=== PATIENT | male | born 1995 | race Caucasian/White ===

== ENCOUNTER 2018-08-31 01:46 | Emergency (ER) | payer OTHER ==
[2018-08-31] MEDS: diphenhydrAMINE 12.5MG/5ML ELIXIR UDC PO (05:31)
[2018-08-31] MEDS: FAMOTIDINE 20 MG TAB PO (05:31)
[2018-08-31] MEDS: predniSONE 20 MG TAB PO (05:31)
== END 2018-08-31 06:10 | disposition home or self-care (01) ==
LOC: M ED 01:46
DX: L23.9 Allergic contact dermatitis, unspecified cause (principal)
CPT/HCPCS: 99283

== ENCOUNTER 2019-12-08 21:10 | Emergency (ER) | payer OTHER ==
[~2019-12-08] VITALS: Ht 180.3 cm; Wt 79.5 kg
[~2019-12-08 21:10] MED LIST: BENA25CA4 PO; RANI1TAB38 PO
[2019-12-08 22:10] LABS: BASO % 0.3 % (0.0-1.0); EOS # 0.1 10^3/uL (0.0-0.5); EOS % 0.9 % (0.0-3.0); HEMATOCRIT 44.8 % (42.0-52.0); HEMOGLOBIN 15.2 g/dl (13.5-17.5); LYMPH # 2.5 10^3/uL (1.5-5.0); LYMPH % 25.5 % (24.0-44.0); MEAN CORPUSCULAR HEMOGLOBIN 30.7 pg (27.0-33.0); MEAN CORPUSCULAR HGB CONC 33.9 g/dl (32.0-36.5); MEAN CORPUSCULAR VOLUME 90.5 fl (80.0-96.0); MONO # 0.9 10^3/uL (0.0-0.8); MONO % 8.9 % (0.0-5.0); NEUTROPHILS # 6.3 10^3/uL (1.5-8.5); PLATELET COUNT, AUTOMATED 209 10^3/uL (150-450); RED BLOOD COUNT 4.95 10^6/uL (4.30-6.10); WHITE BLOOD COUNT 9.9 10^3/uL (4.0-10.0)
[2019-12-08] MEDS ORDERED: ISOVUE-370 76% 100ML VIAL (Q9967) As Ordered ONE (23:01)
[2019-12-08 23:06] LABS: CHLAMYDIA DNA AMPLIFICATION POSITIVE (NEGATIVE); GC DNA AMPLIFICATION NEGATIVE (NEGATIVE)
[2019-12-08] MEDS ORDERED: CIPR-249 PO (23:19)
[2019-12-08] MEDS ORDERED: CIPROFLOXACIN 500 MG TAB PO ONE (23:30)
[2019-12-08] MEDS ORDERED: AZITHROMYCIN 250 MG TAB PO ONE (23:30)
[2019-12-08 23:48] VITALS: BP 120/73
== END 2019-12-08 23:50 | disposition home or self-care (01) ==
LOC: M ED 21:10
DX: A74.9 Chlamydial infection, unspecified (principal); R30.0 Dysuria; Z86.19 Personal history of other infectious and parasitic diseases
CPT/HCPCS: 80047; 81001; 85025; 87086; 87661; 99283; Q9967

== ENCOUNTER 2020-02-06 20:39 | Emergency (ER) | payer OTHER ==
[~2020-02-06] VITALS: Ht 180.3 cm; Wt 81.5 kg
[~2020-02-06 20:39] MED LIST changes: +CIPR-249 PO
[2020-02-06 21:17] LABS: APPEARANCE, URINE CLEAR (CLEAR); BACTERIA, URINE AUTO NEGATIVE (NEGATIVE); BILIRUBIN, URINE AUTO NEGATIVE (NEGATIVE); BLOOD, URINE BLOOD NEGATIVE (NEGATIVE); COLOR, URINE YELLOW (YELLOW); GLUCOSE, URINE (UA) AUTO NEGATIVE (NEGATIVE); KETONE, URINE AUTO TRACE mg/dL (NEGATIVE); LEUKOCYTE ESTERASE, URINE AUTO NEGATIVE (NEGATIVE); MUCUS, URINE SMALL (NEGATIVE); NITRITE, URINE AUTO NEGATIVE (NEGATIVE); PROTEIN, URINE AUTO NEGATIVE (NEGATIVE); RBC, URINE AUTO 2 /HPF (0-3); SQUAMOUS EPITHELIAL CELL UR AU 0 /HPF (0-6); UROBILINOGEN, URINE AUTO 0.2 mg/dL (0.0-2.0); WBC, URINE AUTO 14 /HPF (0-3)
[2020-02-06 23:09] LABS: CHLAMYDIA DNA AMPLIFICATION POSITIVE (NEGATIVE); GC DNA AMPLIFICATION NEGATIVE (NEGATIVE)
[2020-02-06 23:28] VITALS: BP 135/69
[2020-02-06] MEDS ORDERED: cefTRIAXone SOD 250 MG VIAL (J0696) IM ONE (23:45)
[2020-02-06] MEDS ORDERED: AZITHROMYCIN 250 MG TAB PO ONE (23:45)
[2020-02-06] MEDS ORDERED: LIDOCAINE 1% SDV 5 ML VIAL DILUENT ONE (23:45)
== END 2020-02-06 23:51 | disposition home or self-care (01) ==
LOC: M ED 20:39
DX: R30.0 Dysuria (principal); R36.9 Urethral discharge, unspecified; A74.9 Chlamydial infection, unspecified
CPT/HCPCS: 81001; 87491; 87591; 96372; 99283; J0696